=== PATIENT | female | born 1960 | race African-American/Black ===

== ENCOUNTER 2018-04-29 13:42 | Emergency (ER) | payer MEDICARE, MEDICAID ==
[~2018-04-29] VITALS: Ht 167.6 cm; Wt 90.0 kg
[~2018-04-29 13:42] MED LIST: ASPI-1158 PO; BUDE6HFA INH; HYDR12.54 PO; LISI40TA4 PO; LORA0.5T2 PO; MELO-106 PO; TAP5 PO; THEO200T17 PO; TIOT18CA3 INH; TRAM50TA3 *
[2018-04-29] MEDS ORDERED: ALPRAZOLAM 0.5 MG TABLET PO ONE (14:45)
[2018-04-29 15:40] LABS: CLARITY URINE CLEAR (CLEAR); COLOR URINE YELLOW (YELLOW); KETONES URINE NEGATIVE (NEGATIVE); LEUKOCYTE ESTERASE URINE NEGATIVE (NEGATIVE); NITRITE URINE NEGATIVE (NEGATIVE); OCCULT BLOOD URINE NEGATIVE (NEGATIVE); PH URINE 7.5 (4.5-8.0); PROTEIN URINE NEGATIVE (NEGATIVE); SPECIFIC GRAVITY URINE 1.004 (1.005-1.030); UROBILINOGEN URINE 0.2 E.U./dL (0.2-1.0)
[2018-04-29 16:13] VITALS: BP 131/85
== END 2018-04-29 17:15 | disposition home or self-care (01) ==
LOC: ER 13:42
DX: R06.00 Dyspnea, unspecified (principal); F41.1 Generalized anxiety disorder; J44.9 Chronic obstructive pulmonary disease, unspecified; I50.9 Heart failure, unspecified; I11.0 Hypertensive heart disease with heart failure; I25.2 Old myocardial infarction; E05.90 Thyrotoxicosis, unspecified without thyrotoxic crisis or storm; Z79.82 Long term (current) use of aspirin; Z99.81 Dependence on supplemental oxygen
CPT/HCPCS: 82962; 99284